=== PATIENT | male | born 1980 | race Two or more races ===

== ENCOUNTER 2017-11-20 02:24 | Emergency (ER) | payer MEDICAID ==
[~2017-11-20] VITALS: Ht 188 cm; Wt 100.0 kg
[2017-11-20 09:51] LABS: BASOPHILS % 0.4 % (0.0-2.0); EOSINOPHILS % 2.1 % (0.0-5.0); HEMATOCRIT. 43.8 % (42.0-52.0); HEMOGLOBIN. 14.8 g/dL (14.0-18.0); LYMPHOCYTES % 28.4 % (20.0-50.0); MEAN CORPUSCULAR HEMOGLOBIN 30.7 pg (28.0-32.0); MEAN CORPUSCULAR VOLUME 90.8 fL (80.0-94.0); MEAN PLATELET VOLUME 8.4 fl (7.4-10.4); MONOCYTES % 9.6 % (2.0-8.0); NEUTROPHILS % 59.5 % (40.0-76.0); PLATELET 230 x1000/uL (130-400); RED BLOOD CELL COUNT 4.82 mill/uL (4.7-6.1); RED CELL DISTRIBUTION WIDTH 13.3 % (11.6-14.6)
[2017-11-20 09:54] LABS: PROTHROMBIN TIME 10.4 sec (9.4-11.6)
[2017-11-20 10:07] LABS: CHLORIDE 110 mEq/L (98-107)
[2017-11-20 10:21] LABS: CLARITY URINE CLEAR (CLEAR); COLOR URINE YELLOW (YELLOW); KETONES URINE NEGATIVE (NEGATIVE); LEUKOCYTE ESTERASE URINE NEGATIVE (NEGATIVE); NITRITE URINE NEGATIVE (NEGATIVE); OCCULT BLOOD URINE NEGATIVE (NEGATIVE); PH URINE 5.5 (4.5-8.0); PROTEIN URINE NEGATIVE (NEGATIVE); SPECIFIC GRAVITY URINE 1.036 (1.005-1.030); UROBILINOGEN URINE 0.2 E.U./dL (0.2-1.0)
[2017-11-20] MEDS ORDERED: IOHEXOL-300 100 ML BOTTLE ONE (11:00)
[2017-11-20] MEDS ORDERED: SODIUM CHLORIDE 0.9% 1,000 ML IV ONE (12:45)
[2017-11-20] MEDS ORDERED: ONDANSETRON HCL 4MG/2ML VIAL IV ONE (12:45)
[2017-11-20] MEDS ORDERED: FENTANYL CITRATE/PF 50MCG/ML 2ML VIAL IV ONE (12:45)
[2017-11-20 15:29] VITALS: BP 110/76
== END 2017-11-20 15:33 | disposition home or self-care (01) ==
LOC: ER 02:24
DX: K80.70 Calculus of gallbladder and bile duct without cholecystitis without obstruction (principal)
CPT/HCPCS: 36415; 74177; 76705; 80053; 81003; 83690; 85025; 85610; 96361; 96374; 96375; 99285; J2405; J3010; J7030; Q9967

== ENCOUNTER 2018-04-06 19:08 | Inpatient (IN) | payer SELFPAY ==
[~2018-04-06] VITALS: Ht 188 cm; Wt 95.3 kg
[2018-04-06] MEDS ORDERED: ONDANSETRON HCL 4MG/2ML VIAL IV STA ×2 (19:57→20:17)
[2018-04-06] MEDS ORDERED: MORPHINE SULFATE 4 MG/ML CPJ (NOT FOR IM USE) IV STA ×2 (19:57→20:17)
[2018-04-06] MEDS ORDERED: SODIUM CHLORIDE 0.9% 1,000 ML IV ONE (20:17)
[2018-04-06 20:29] LABS: BASOPHILS % 0.1 % (0.0-2.0); EOSINOPHILS % 0.7 % (0.0-5.0); HEMATOCRIT. 44.4 % (42.0-52.0); LYMPHOCYTES % 13.7 % (20.0-50.0); MEAN CORPUSCULAR HEMOGLOBIN 30.1 pg (28.0-32.0); MEAN CORPUSCULAR VOLUME 89.1 fL (80.0-94.0); MEAN PLATELET VOLUME 8.9 fl (7.4-10.4); MONOCYTES % 4.6 % (2.0-8.0); NEUTROPHILS % 80.9 % (40.0-76.0); PLATELET 251 x1000/uL (130-400); RED BLOOD CELL COUNT 4.98 mill/uL (4.7-6.1)
[2018-04-06 20:32] LABS: CHLORIDE 102 mEq/L (98-107)
[2018-04-06] MEDS ORDERED: CEFOXITIN SODIUM 1 G in DEXTROSE 5% WATER 50 ML IV SCH (23:15)
[2018-04-06 23:42] LABS: CLARITY URINE TURBID (CLEAR); COLOR URINE YELLOW (YELLOW); KETONES URINE NEGATIVE (NEGATIVE); LEUKOCYTE ESTERASE URINE NEGATIVE (NEGATIVE); NITRITE URINE NEGATIVE (NEGATIVE); OCCULT BLOOD URINE NEGATIVE (NEGATIVE); PROTEIN URINE TRACE (NEGATIVE); SPECIFIC GRAVITY URINE 1.024 (1.005-1.030)
[2018-04-07 04:00] VITALS: BP 104/60
[2018-04-07] MEDS ORDERED: LEVOFLOXACIN 500MG PREMIX 100 ML IV SCH (04:45)
[2018-04-07] MEDS ORDERED: MORPHINE SULFATE 4 MG/ML CPJ (NOT FOR IM USE) IV PRN (04:45)
[2018-04-07] MEDS ORDERED: KETOROLAC 30MG/ML VIAL IV PRN (04:45)
[2018-04-07] MEDS ORDERED: ONDANSETRON HCL 4MG/2ML VIAL IV PRN (04:45)
[2018-04-07 05:00] VITALS: BP 104/60
[2018-04-07] MEDS: DEXT 5%/0.45% NACL KCL 10MEQ/L 1,000 ML IV SCH ×2 (06:00→11:59)
[2018-04-07 07:58] VITALS: BP 106/63
[2018-04-07] MEDS: LEVOFLOXACIN 500MG PREMIX 100 ML IV SCH (08:00)
[2018-04-07] MEDS: FAMOTIDINE 20MG/2ML VIAL IV SCH ×2 (09:00→21:19)
[2018-04-07 12:00] VITALS: BP 106/62
[2018-04-07 16:00] VITALS: BP 99/55
[2018-04-07 20:00] VITALS: BP 104/63
[2018-04-08] VITALS: BP 106/69
[2018-04-08] MEDS: DEXT 5%/0.45% NACL KCL 10MEQ/L 1,000 ML IV SCH (03:07)
[2018-04-08 04:00] VITALS: BP 101/61
[2018-04-08 08:00] VITALS: BP 99/67
[2018-04-08] MEDS: LEVOFLOXACIN 500MG PREMIX 100 ML IV SCH (08:10)
[2018-04-08] MEDS: FAMOTIDINE 20MG/2ML VIAL IV SCH ×2 (08:10→21:42)
[2018-04-08] MEDS ORDERED: BUPIVACAINE HCL/PF 0.5% (5MG/ML) 10ML ONE ×2 (09:10→09:59)
[2018-04-08] MEDS ORDERED: SKIN ADHESIVE 0.7 GM EA TOP ONE (09:10)
[2018-04-08] MEDS ORDERED: FENTANYL CITRATE/PF 50MCG/ML 2ML VIAL ONE (09:35)
[2018-04-08] MEDS ORDERED: MIDAZOLAM HCL 2 MG/2 ML VIAL ONE (09:35)
[2018-04-08] MEDS ORDERED: PROPOFOL 200MG/20ML VIAL IV ONE (09:35)
[2018-04-08] MEDS ORDERED: ONDANSETRON HCL 4MG/2ML VIAL IV PRN (09:45)
[2018-04-08] MEDS ORDERED: MORPHINE SULFATE 4 MG/ML CPJ (NOT FOR IM USE) IV PRN ×2 (09:45)
[2018-04-08] MEDS ORDERED: HYDROCODONE/ACETAMINOPHEN 5/325MG TABLET PO PRN ×2 (09:45)
[2018-04-08] MEDS ORDERED: ACETAMINOPHEN 325MG TABLET PO PRN (09:45)
[2018-04-08] MEDS ORDERED: NEOSTIGMINE METHYLSULFATE 1MG/ML 10 ML VIAL ONE (10:03)
[2018-04-08] MEDS ORDERED: GLYCOPYRROLATE 0.2 MG/ML 2ML VIAL ONE ×2 (10:04→10:32)
[2018-04-08] MEDS ORDERED: FENTANYL CITRATE/PF 50MCG/ML 2ML VIAL IV PRN (10:45)
[2018-04-08 12:00] VITALS: BP 113/72
[2018-04-08] MEDS ORDERED: SODIUM CHLORIDE 0.9% INJ 3ML FLUSH IVF SCH (14:00)
[2018-04-08 16:00] VITALS: BP 104/66
[2018-04-08] MEDS: DEXT 5%/0.45% NACL KCL 20MEQ/L 1,000 ML IV SCH (16:32)
[2018-04-08 20:00] VITALS: BP 99/57
[2018-04-09] VITALS: BP 102/59
[2018-04-09 04:00] VITALS: BP 102/62
[2018-04-09 08:00] VITALS: BP 119/63
[2018-04-09] MEDS: DEXT 5%/0.45% NACL KCL 20MEQ/L 1,000 ML IV SCH (08:11)
[2018-04-09] MEDS: LEVOFLOXACIN 500MG PREMIX 100 ML IV SCH (08:11)
[2018-04-09] MEDS: FAMOTIDINE 20MG/2ML VIAL IV SCH (08:11)
[2018-04-09 09:05] VITALS: BP 119/63
== END 2018-04-09 10:25 | disposition home or self-care (01) | DRG 263 ==
LOC: ER 19:08 → 6EST 23:56 → EDBEDREQ 23:58 → EDBEDREQTM 23:58 → ENRESERV 04-07 01:49
PROVIDERS: ADMIT Internal Medicine; ATTEND Internal Medicine
PROC: 0FT44ZZ Resection of Gallbladder, Percutaneous Endoscopic Approach (ICD-10-PCS; principal; 2018-04-08 10:00)
DX: K80.01 Calculus of gallbladder with acute cholecystitis with obstruction (principal); Z83.3 Family history of diabetes mellitus
CPT/HCPCS: 36415; 71045; 76700; 78227; 80053; 81003; 83605; 83690; 85025; 85610; 86850; 86900; 88304; 96361; 96365; 96375; 99285; A9537; J0694; J1956; J2250; J2270; J2405; J2704; J2710; J3010; J3490; J7030; J7060